=== PATIENT | male | born 1955 | race Caucasian/White ===

== ENCOUNTER → 2017-07-17 | Day surgery (SDC) | payer OTHER ==
[~2017-07-17] MED LIST: ACETAMINOPHEN 1000 MG/100 ML 100 ML IV ONE; ASPI81 PO; BUPIVACAINE/EPINEPHRINE 0.25% 50 ML VIAL ONE; CLOP75 PO; KETOROLAC TROMETHAMINE 30 MG/ML (IVP) VIAL IV PUSH ONE; LACTATED RINGER'S 1000 ML INJ 1,000 ML ONE; LIDOCAINE 1%/EPINEPHrine 1:100,000 SOLN 50 ML VIAL ONE; LOSA25TA31 PO; MEPERIDINE HCL 25 MG/ML VIAL ONE; MIDAZOLAM HCL 2 MG/2 ML VIAL ONE; ONDANSETRON HCL 4 MG/2 ML VIAL IV PUSH ONE; PROPOFOL 200 MG/20 ML AMP IV ONE; SODIUM CHLOR 0.9% 250 ML BAG IV ONE; TAB-TAB PO; TOPR50TA PO; TYLE500T PO; VANCOMYCIN HCL 1000 MG VIAL ONE; ZOCO40TA PO; ceFAZolin INJ 1,000 MG VIAL ONE
--- NOTE | 2017-07-18 08:39 | MP ---
cc: MELITON PACHECO M.D., MARK DATE OF SURGERY 07/17/2017 PROCEDURE Left inguinal hernia repair with mesh. PREOPERATIVE DIAGNOSIS Symptomatic left inguinal hernia. POSTOPERATIVE DIAGNOSIS Symptomatic indirect reducible left inguinal hernia. ANESTHESIA LMA SURGEON Meliton Pacheco MD DIRECT SERVICE PROFESSIONAL [place] ESTIMATED BLOOD LOSS 25 mL FLUIDS 1200 mL crystalloid COMPLICATIONS None DRAINS None SPECIMEN None PROCEDURE IN DETAIL The patient was seen in the holding area and the left side marked by the undersigned and confirmed by the patient. He was taken to the operating room and placed on the operating table in the supine position. After an adequate level of laryngeal mask anesthesia was achieved, the groin was shaved, prepped and draped. Time-out was taken confirming the correct patient, site, and procedure to be performed. The nurse practitioner was present throughout the entirety of the procedure. She was required for assistance in retraction, exposure and resection of important structures. The skin and subcutaneous tissue was infiltrated with local anesthetic and an oblique incision made in the groin. Dissection was carried down to the external oblique fascia where further subfascial injections were made with local anesthetic. When this was completed, the external oblique fibers were opened and the underlying tissues swept free from the external oblique fascia. The iliohypogastric nerve was left in its burns paiute pathway and was minimally dissected. The spermatic cord structures were brought up on a Gil drain. A hernia sac was dissected from the spermatic cord structures and inverted into the abdominal cavity after dissecting it back to the level of the internal ring. The patient was also noted to have a fairly large indirect defect and this was partially closed down with Prolene sutures prior to placing the mesh to keep the colon intra-abdominally during placement of the mesh. When this had been completed, a 3 x 6 inches piece of atrium mesh was brought up and placed into the defect. The mesh was transfixed to the pubic tubercle with 2-0 Prolene suture which was then run along the shelving edge of the inguinal ligament to complete the lateral edge of the repair. The mesh was then slit longitudinally to allow for egress of cord structures and then trimmed to size to fit the defect medially. The mesh was transfixed at multiple points with 2-0 Prolene sutures with care taken to place no sutures near the iliohypogastric nerve. The medial piece of mesh was overlapped over the lateral piece of mesh and cinched down to the inguinal ligament with 2-0 Prolene sutures. This allowed for egress of the cord structures but was small enough to minimize the risk of the recurrent herniation. When this was completed, the repair was intact and with hemostasis assured, remaining local anesthetic was injected into the transversalis fascia and subcutaneous tissues. The external oblique fascia was closed in a running fashion while being very careful to exclude the underlying tissues and not to include the iliohypogastric nerve in the closure. The wound was closed with interrupted 3-0 Vicryl suture and the skin closed with 5-0 PDS in a running subcuticular fashion. The wound was dressed with Telfa and Tegaderm and the patient was then extubated and taken back to the recovery room in stable condition. Sponge, needle and instrument counts were reported be correct. The patient tolerated procedure well. MD GINYN Baig/DAVID /11:39 PM /8:38 AM
== END | disposition home or self-care (01) ==
LOC: ESDC 08:32
PROVIDERS: ATTEND Surgery Trauma Surgery
DX: K40.90 Unilateral inguinal hernia, without obstruction or gangrene, not specified as recurrent (principal)
CPT/HCPCS: 00830; 49505; 88305; C1781; J0131; J0690; J1885; J2175; J2250; J2405; J3010; J3370; J7050; J7120